=== PATIENT | female | born 1945 | race Caucasian/White ===

== ENCOUNTER 2025-02-07 10:19 | Observation (INO) | payer OTHER ==
[2025-02-03 09:59] LABS: IMMATURE GRANULOCYTE ABSOLUTE 0.03 K/uL (0-1); NUCLEATED RED BLOOD CELLS 0.0 % (0.0-0.19); PLATELET COUNT (AUTO) 200 K/uL (130-400); RED BLOOD CELL COUNT(AUTO) 2.88 MIL/uL (4.00-5.50); RED CELL DISTRIBUTION WIDTH 12.4 % (11.0-15.5); WHITE BLOOD COUNT (AUTO) 6.0 K/uL (4.8-10.8)
[2025-02-03 10:04] VITALS: BP 127/68; PULSE 80; RESP 14; TEMP 98.2
[2025-02-03 10:10] LABS: CREATININE 1.0 mg/dL (0.5-1.0); GLOMERULAR FILTR. RATE CALC 57.0 mL/min (>90); GLUCOSE,RANDOM 105.0 mg/dL (70-105); SODIUM SERUM 145.0 mmol/L (136-145); UREA NITROGEN, BLOOD 21.0 mg/dL (7-18)
[2025-02-03 10:23] LABS: INR 1.03 (0.85-1.15)
--- NOTE | 2025-02-03 10:28 | EKG ---
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
--- NOTE | 2025-02-06 09:36 | NUR ---
RE: LABS REPORTED CBC RESULTS TO DR SORENSEN, NO NEW ORDERS RECEIVED. OK TO PROCEED.
[2025-02-07] VITALS (11 sets, daily range): BP systolic 93–135; BP diastolic 50–75; PULSE 85–91; RESP 12–20; TEMP 97.8–99; O2SAT 96
[~2025-02-07] VITALS: Ht 162.6 cm; Wt 59.4 kg
[~2025-02-07 10:19] MED LIST: APIX5TAB PO; ATOR10 PO; CHOL2000 PO; CINN500C PO; LISI20TA24 PO; MV-M1TAB46 PO; PSYL0.4C7 PO; TRAM100T34 PO; VITAMIN B12 PO
[2025-02-07] MEDS: 0.9%NACL 1000ML 1,000 ML IV SCH (11:06)
[2025-02-07] MEDS ORDERED: SODIUM BICARB 50MEQ 50ML VIAL 50 ML ONE (15:16)
[2025-02-07] MEDS ORDERED: LIDOCAINE HCL 1% MDV 50ML VIAL ONE (15:16)
[2025-02-07] MEDS ORDERED: IOHEXOL-350 50ML VIAL IV ONE (15:16)
[2025-02-07] MEDS ORDERED: MIDAZOLAM HCL 1 MG/ML 2ML VIAL ONE ×5 (15:46→17:59)
[2025-02-07] MEDS ORDERED: BACITRACIN 1 EACH PACKET TP ONE (18:05)
--- NOTE | 2025-02-07 18:50 | NUR ---
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 PRESSURE DRESSING TO LEFT UPPER CHEST. NO ACTIVE BLEEDING OR DRAINAGE NOTED TO DRESSING. DRESSING DRY AND INTACT. SPOUSE AT BEDSIDE.
--- NOTE | 2025-02-07 19:05 | NUR ---
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 PRESSURE DRESSING TO LEFT UPPER CHEST. NO ACTIVE BLEEDING OR DRAINAGE NOTED. NO REDNESS OR SWELLING NOTED. DRESSING DRY AND INTACT. SPOUSE AT BEDSIDE.
--- NOTE | 2025-02-07 19:20 | NUR ---
SLING TO LEFT ARM. PRESSURE DRESSING TO LEFT UPPER CHEST. DRESSING DRY AND INTACT. NO ACTIVE BLEEDING OR DRAINAGE NOTED. NO REDNESS OR SWELLING NOTED.
--- NOTE | 2025-02-07 19:35 | NUR ---
SLING TO LEFT ARM. PRESSURE DRESSING TO LEFT UPPER CHEST. PRESSURE DRESSING DRY AND INTACT. NO ACTIVE BLEEDING OR DRAINAGE NOTED. NO REDNESS OR SWELLING NOTED.
--- NOTE | 2025-02-07 20:05 | NUR ---
SLING TO LEFT ARM. PRESSURE DRESSING TO LEFT UPPER CHEST.
--- NOTE | 2025-02-07 20:05 | NUR ---
PRESSURE DRESSING DRY AND INTACT. NO ACTIVE BLEEDING OR DRAINAGE. NO REDNESS OR SWELLING.
--- NOTE | 2025-02-07 20:35 | NUR ---
SLING TO LEFT ARM. PRESSURE DRESSING TO LEFT UPPER CHEST. PRESSURE DRESSING DRY AND INTACT. NO ACTIVE BLEEDING OR DRAINAGE NOTED. NO REDNESS OR SWELLING NOTED.
--- NOTE | 2025-02-07 20:46 | NUR ---
GIVEN SBAR REPORT VIA TELEPHONE TO LATRICE RAMOS. INFORMED SPOUSE MAX OF PATIENT LOCATION.
[2025-02-08 00:46] VITALS: BP 130/78; PULSE 91; RESP 16
[2025-02-08] MEDS ORDERED: TRAMADOL HCL 50 MG PO PRN (03:00)
[2025-02-08 03:05] VITALS: BP 119/59; PULSE 90; RESP 16; TEMP 97.8
[2025-02-08] MEDS ORDERED: PSYLLIUM SEED 1 EACH PACKET PO PRN (03:30)
[2025-02-08 07:45] VITALS: O2SAT 98
[2025-02-08 08:00] VITALS: BP 129/67; PULSE 78; RESP 17; TEMP 98.3
[2025-02-08] MEDS: (Cholecalciferol (Vitamin D3) (Vitamin D3) 50 MCG) PO SCH (09:00)
[2025-02-08] MEDS: (Cinnamon Bark (Cinnamon) 1,000 MG) PO SCH (09:00)
--- NOTE | 2025-02-08 09:46 | NUR ---
DCP: HOME Sw met with pt and her Evans Galvez [phone]. Pt reports she is independent of her ADLS, home management and meal prep. transports pt as needed. Pt has a walker with seat, cane and shower chair if needed. No provider, HH or HD services at this time. PCP is Luisana Garcia and uses [facility] for rx needs. Pt denies need for SNF, wants to return home at pr
--- NOTE | 2025-02-08 11:20 | NUR ---
Patient was discharged, all discharge documentation and personal items taken by patient and spouse. Patient informed to follow up with primary care provider in 3-[address] Wilkinson in 10-14 days. Patient agreed to make follow up appointment for Dr. Wilkinson. Patient provided with [email or web address] device card and instruction manual, patient informed to not resume Eliquis until 02/11/2025. IV and telemetry pack were removed, patient transported out of facility via wheelchair by REJI Feldman.
--- NOTE | 2025-02-08 16:02 | HMCIMG ---
EXAM: XR Chest, 1 View. CLINICAL HISTORY: S/P PACEMAKER UPGRADE COMPARISON: None provided. FINDINGS: LUNGS: Left basilar atelectasis is seen. No consolidation. PLEURAL SPACES: Small left pleural effusion. No pneumothorax. HEART: The heart size is normal. A cardiac pacemaker is identified in the left chest wall. BONES: The bones are osteopenic. Spinal stimulator leads noted overlying the mid thoracic vertebrae. Lower cervical spinal postoperative changes noted. IMPRESSION: 1. Small left pleural effusion with left basilar atelectasis. 2. A cardiac pacemaker is identified in the left chest wall. /Parkin
[2025-02-08] MEDS ORDERED: LISINOPRIL 20 MG TABLET PO SCH (21:00)
== END 2025-02-08 11:30 | disposition home or self-care (01) ==
LOC: DAH 10:19 → 2DH 10:20 → DAH 10:20
PROVIDERS: ADMIT Internal Medicine Cardiovascular Disease; ATTEND Internal Medicine Cardiovascular Disease
DX: I42.0 Dilated cardiomyopathy (principal); I44.2 Atrioventricular block, complete; I42.8 Other cardiomyopathies; I48.0 Paroxysmal atrial fibrillation; E78.5 Hyperlipidemia, unspecified; Z90.710 Acquired absence of both cervix and uterus; Z79.899 Other long term (current) drug therapy
CPT/HCPCS: 80048; 85025; 85610; 85730; 36415; 93005; 33225; 33222; 33229; 99156; 99157 ×6; 71045; C1769 ×2; C1900; C2621; G0378 ×19; J1200; J3010 ×4; J0690; J7030; J0665; J3490 ×2; J2250 ×5; Q9967; A4215; A4223 ×3; A4222; A4221; A4663; A4216; A4606